=== PATIENT | male | born 1990 | race Caucasian/White ===

== ENCOUNTER 2017-11-21 11:21 | Emergency (ER) | payer OTHER ==
[2017-11-21] MEDS ORDERED: ALBUTEROL 3 ML DEYVIAL ONE (11:27)
[2017-11-21] MEDS ORDERED: ALBUTEROL 3 ML DEYVIAL IH ONE (11:28)
[2017-11-21] MEDS ORDERED: NS 1,000 ML IV ONE (11:28)
[2017-11-21] MEDS ORDERED: RANITIDINE 50 MG/2 ML VIAL IVP ONE (11:28)
[2017-11-21] MEDS ORDERED: methylPREDNISolone SOD SUCC 125 MG/2 ML VIAL IVP ONE (11:28)
--- NOTE | 2017-11-21 11:31 | EDPHY ---
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 Onset of facial swelling and shortness of breath 30 min ago. 5 min prior to arrival, he used an EpiPen. He now feels somewhat shaky after the EpiPen. He continues to be short of breath and have lip and facial swelling. Unknown allergen. h/o prior allergic rxns to MSG and almonds. REVIEW OF SYSTEMS: complete 10 point ROS negative except at noted in the HPI - Medical/Surgical History Hx Asthma: No Hx Chronic Respiratory Disease: No Hx Diabetes: No Hx Cardiac Disease: No Hx Renal Disease: No Hx Cirrhosis: No Hx Alcoholism: No Hx HIV/AIDS: No Hx Splenectomy or Spleen Trauma: No Other PMH: 5unremarkable. anaphy;asxis to ? - Social History Smoking Status: Never smoked - Physical Exam Exam: General Appearance: Alert, anxious Eyes: Pupils equal and round, periorbital swelling ENT, Mouth: Mucous membranes moist, moderate lip swelling, no tongue swelling Neck: Stridor present Respiratory: tachypneic, lungs are clear to auscultation, no wheezing Cardiovascular: Regular rate and rhythm Neurological: A&O, nonfocal, normal gait Skin: Normal inspection, no hives Extremities: No swelling Psychiatric: Mood and affect normal Constitutional: Initial Vital Signs Temperature (C) 37.0 C 11/21/17 11:24 Heart Rate 128 H 11/21/17 11:24 Respiratory Rate 22 H 11/21/17 11:24 Blood Pressure 95/62 L 11/21/17 11:24 O2 Sat (%) 89 L 11/21/17 11:24 O2 Delivery Mode Room Air Allergies/Adverse Reactions: msg Allergy (Uncoded 11/21/17 11:39) Home Medications: Medication Instructions Recorded EPINEPHrine [Epipen 0.3 MG] 0.3 mg IM ONCE #2 syr 11/21/17 Epinephrine 11/21/17 predniSONE 60 mg PO DAILY #9 tab 11/21/17 Medical Decision Making ED Course/Re-evaluation: This patient presents with anaphylaxis. Benadryl, ranitidine and Solu-Medrol IV given. An albuterol nebulized breathing treatment given. 11:45 a.m.-feels much better after medication. Stridor has resolved and lip swelling has lessened. Will observe. 1340: Continues to feel much better. On exam, he has slight lower lip swelling , no stridor and lungs are clear to auscultation. I feel that he is safe and stable for discharge home. f/u black topper. He will return for worsening symptoms or any concerns. Differential Diagnosis: Differential diagnosis includes though it is not limited to laryngeal edema, bronchospasm, hypotension, angioedema. - Data Points Medications Given: Discontinued Medications Albuterol (Proventil Neb) 3 ml IH EDNOW ONE Stop: 11/21/17 11:29 Last Admin: 11/21/17 11:31 Dose: 3 ml Diphenhydramine HCl (Benadryl Injection) 50 mg IVP EDNOW ONE Stop: 11/21/17 11:29 Last Admin: 11/21/17 11:30 Dose: 50 mg Sodium Chloride (Ns) 1,000 mls @ 0 mls/hr IV ONCE ONE; Wide Open PRN Reason: Protocol Stop: 11/21/17 11:29 Last Admin: 11/21/17 11:32 Dose: 1,000 mls Methylprednisolone Sodium Succinate (Solu-Medrol) 125 mg IVP EDNOW ONE Stop: 11/21/17 11:29 Last Admin: 11/21/17 11:32 Dose: 125 mg Ranitidine HCl (Zantac) 50 mg IVP EDNOW ONE Stop: 11/21/17 11:29 Last Admin: 11/21/17 11:31 Dose: 50 mg Departure - Departure Disposition: Home, Routine, Self-Care Clinical Impression: Anaphylaxis Qualifiers: Encounter type: initial encounter Qualified Code(s): T78.2XXA - Anaphylactic shock, unspecified, initial encounter Condition: Good Instructions: Anaphylaxis (ED) Additional Instructions: Take Claritin in the morning and Benadryl at night while the rash persists. Take prednisone as prescribed. Return for worsening symptoms or any concerns. Referrals: Shameka Rose MD [Medical Doctor] - Follow Up Only If Needed Prescriptions: EPINEPHrine [Epipen 0.3 MG] 0.3 mg IM ONCE #2 syr predniSONE 60 mg PO DAILY #9 tab
[2017-11-21 12:56] VITALS: BP 113/66
== END 2017-11-21 13:45 | disposition home or self-care (01) ==
DX: T78.2XXA Anaphylactic shock, unspecified, initial encounter (principal); E86.9 Volume depletion, unspecified
CPT/HCPCS: 96374; J2930; J7613

== ENCOUNTER 2017-12-12 20:50 | Observation (INO) | payer MEDICAID, OTHER ==
[2017-12-12] MEDS ORDERED: TDAP ADULT 0.5 ML INJ (BOOSTRIX) IM ONE (20:57)
[2017-12-12] MEDS ORDERED: ceFAZolin 2 GM/DEXTROSE 100 ML IV ONE (20:57)
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
[2017-12-12 21:04] LABS: PLATELET COUNT 296 10^3/uL (150-400)
[2017-12-12] MEDS ORDERED: CEFAZOLIN 1 GM/DEXTROSE/50 ML BAG IV ONE (21:05)
[2017-12-12 21:23] LABS: PROTIME(PATIENT) 13.4 SEC (12.0-15.0)
[2017-12-12] MEDS ORDERED: HYDROmorphONE/DILAUDID 2 MG/ML INJ IVP ONE (21:25)
[2017-12-12] MEDS ORDERED: HYDROmorphONE/DILAUDID 1 MG/ML INJ ONE (21:26)
[2017-12-12] MEDS ORDERED: HYDROmorphONE/DILAUDID 1 MG/ML INJ IVP ONE (22:00)
[2017-12-12] MEDS ORDERED: ACETAMINOPHEN 325 MG TAB PO ONE (22:17)
[2017-12-12] MEDS ORDERED: HYDROmorphONE/DILAUDID 1 MG/ML INJ IVP PRN (22:22)
[2017-12-12] MEDS ORDERED: D5W 1/2 NS 1,000 ML IV SCH (22:30)
[2017-12-12] MEDS ORDERED: ONDANSETRON 4 MG/2 ML VIAL ONE (22:38)
[2017-12-12] MEDS ORDERED: ONDANSETRON 4 MG/2 ML VIAL IVP ONE ×2 (22:40→23:00)
[2017-12-12] MEDS ORDERED: NON-FORMULARY NEW DRUG (Epinephrine [Epipen 0.3 Mg] 0.3 MG) IM PRN (22:45)
[2017-12-13] MEDS ORDERED: ONDANSETRON 4 MG/2 ML VIAL ONE ×2 (04:16→08:35)
[2017-12-13] MEDS ORDERED: ONDANSETRON 4 MG/2 ML VIAL IVP PRN ×2 (04:42→12:33)
[2017-12-13] MEDS ORDERED: ceFAZolin 2 GM/DEXTROSE 100 ML IV SCH (06:00)
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
[2017-12-13] MEDS ORDERED: SCOPOLAMINE HYDROBROMIDE 1 MG/3 DAYS PATCH TD ONE (08:17)
[2017-12-13] MEDS ORDERED: MIDAZOLAM 2 MG/2 ML VIAL IVP ONE (08:19)
[2017-12-13] MEDS ORDERED: BACITRACIN 50,000 UNITS/10 ML SYR IRR ONE ×2 (08:20→09:37)
[2017-12-13] MEDS ORDERED: BUPIVACAINE 0.25% 30 ML SDV ONE (08:20)
[2017-12-13] MEDS ORDERED: EPINEPHrine 1 MG/ML INJ ONE (08:20)
--- NOTE | 2017-12-13 08:22 | PDANEPAE ---
ANE History of Present Illness ORIF L forearm for open both bone mid-shaft fracture ANE Past Medical History - Pulmonary History Hx Oxygen in Use at Home: No Hx Sleep Apnea: No Sleep Apnea Screening Result - Last Documented: Negative - Endocrine History Hx Diabetes: No - Chronic Pain History Chronic Pain: No ANE Review of Systems Review of Systems: - Exercise capacity Exercise capacity: >=4 METS ANE Patient History - Allergies Allergies/Adverse Reactions: msg Allergy (Severe, Uncoded 12/12/17 22:36) Unknown - NPO status NPO Status: no food or drink >8 hours NPO Since - Liquids (Date): 12/13/17 (1999 last night) NPO Since - Liquids (Time): 00:01 NPO Since - Solids (Date): 12/13/17 NPO Since - Solids (Time): 00:01 - Anes Hx Anes Hx: no prior problems (no anesthetics ever. Has N/V with opiates so will place scopalamine patch) - Smoking Hx Smoking Status: Never smoked - Alcohol Use Alcohol Use: Occasionally - Family Anes Hx Family Anes Hx: none ANE Labs/Vital Signs - Labs Result Diagrams: 12/12/17 23:40 12/12/17 23:40 - Vital Signs Blood Pressure: 128/58 Heart Rate: 72 Respiratory Rate: 16 O2 Sat (%): 96 Height: 187.96 cm Weight: 88.451 kg ANE Physical Exam - Airway Neck exam: FROM Mallampati Score: Class 1 Mouth exam: normal dental/mouth exam - Pulmonary Pulmonary: no respiratory distress - Cardiovascular Cardiovascular: regular rate and rhythym - ASA Status ASA Status: I ANE Anesthesia Plan Anesthesia Plan: GA w LMA
[2017-12-13] MEDS ORDERED: SCOPOLAMINE HYDROBROMIDE 1 MG/3 DAYS PATCH TD SCH (08:30)
[2017-12-13] MEDS ORDERED: PROPOFOL/EMULSION 500 MG/50 ML BOTTLE IV ONE ×2 (08:34→10:03)
[2017-12-13] MEDS ORDERED: fentaNYL 100 MCG/2 ML INJ ONE ×3 (08:34→11:46)
[2017-12-13] MEDS ORDERED: LIDOCAINE 2% JELLY 5 ML TUBE ONE (08:35)
[2017-12-13] MEDS ORDERED: DEXAMETHASONE 4 MG/ML VIAL ONE ×2 (08:35)
[2017-12-13] MEDS ORDERED: LIDOCAINE 2% 100 MG/5 ML SYR ONE (08:35)
[2017-12-13] MEDS ORDERED: CEFAZOLIN 1 GM/DEXTROSE/50 ML BAG IV ONE (08:36)
[2017-12-13] MEDS ORDERED: MIDAZOLAM 2 MG/2 ML VIAL ONE (08:44)
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
[2017-12-13] MEDS ORDERED: PROPOFOL 200 MG/20 ML VIAL ONE (11:56)
[2017-12-13] MEDS ORDERED: PROMETHAZINE HCL 25 MG/ML INJ IVP PRN ×2 (12:33→13:41)
[2017-12-13] MEDS ORDERED: MEPERIDINE 25 MG/0.5 ML AMP IVP PRN (12:33)
[2017-12-13] MEDS ORDERED: LABETALOL HCL 5 MG/ML 20 ML MDV IVP PRN (12:33)
[2017-12-13] MEDS ORDERED: HYDROCODONE/APAP 5/325 TAB PO PRN (12:33)
[2017-12-13] MEDS ORDERED: DEXAMETHASONE 4 MG/ML VIAL IVP PRN (12:33)
[2017-12-13] MEDS ORDERED: NALOXONE HCL 0.4 MG/ML INJ IVP PRN (12:33)
[2017-12-13] MEDS ORDERED: ALBUTEROL 3 ML DEYVIAL IH PRN (12:33)
[2017-12-13] MEDS ORDERED: fentaNYL 100 MCG/2 ML INJ IVP PRN (12:33)
[2017-12-13] MEDS ORDERED: PHENYLEPHRINE HCL 100 MCG/ML SYR IVP PRN (12:33)
[2017-12-13] MEDS ORDERED: oxyCODONE IR 5 MG TAB PO PRN ×2 (12:33→13:41)
[2017-12-13] MEDS ORDERED: METOCLOPRAMIDE 10 MG/2 ML VIAL IVP PRN ×2 (12:33→13:41)
[2017-12-13] MEDS ORDERED: LR 500 ML IV PRN (12:33)
[2017-12-13] MEDS ORDERED: ACETAMINOPHEN 500 MG TAB PO PRN (12:33)
--- NOTE | 2017-12-13 13:08 | POSTOPPROG ---
Post Op Note Date of Operation: 12/13/17 Surgeon: Geo العراقي Classer: MACHO Brown Anesthesiologist: Anselmo Anesthesia: GET(General Endotracheal) Pre-op Diagnosis: L open BBFFx and L hand FB Post-op Diagnosis: same Indication: above Procedure: I&D/washout and ORIF L rad and ulna shaft fxs, FBR L hand Findings: Comminuted fractures, excellent bone quality, no gross contamination. Inf/Abcess present in the surg proc area at time of surgery?: No EBL: 30cc Complications: None Drains: Other (None)
[2017-12-13] MEDS ORDERED: diphenhydrAMINE 25 MG CAP PO PRN (13:41)
[2017-12-13] MEDS ORDERED: PROMETHAZINE HCL 25 MG SUPPR PR PRN (13:41)
[2017-12-13] MEDS ORDERED: ONDANSETRON DISINTEGRATING 4 MG TAB PO PRN (13:41)
[2017-12-13] MEDS ORDERED: TEMAZEPAM 15 MG CAP PO PRN (13:41)
[2017-12-13] MEDS ORDERED: DIPHENOXYLATE/ATROPINE LOMOTIL 1 TAB PO PRN (13:41)
[2017-12-13] MEDS ORDERED: CYCLOBENZAPRINE 10 MG TAB PO PRN (13:41)
[2017-12-13] MEDS ORDERED: LR 1,000 ML IV SCH (14:00)
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
[2017-12-13] MEDS: ACETAMINOPHEN 325 MG TAB PO SCH (16:52)
[2017-12-13] MEDS: OXYCODONE/APAP 5/325 TAB PO PRN ×2 (17:20→23:31)
[2017-12-13] MEDS: FAMOTIDINE 20 MG TAB PO SCH (20:09)
[2017-12-14] MEDS: ACETAMINOPHEN 325 MG TAB PO SCH ×3 (05:02→13:42)
[2017-12-14] MEDS: OXYCODONE/APAP 5/325 TAB PO PRN ×2 (05:41→09:57)
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
[2017-12-14 07:40] VITALS: BP 99/48
[2017-12-14] MEDS ORDERED: EPINEPHrine KIT (USE FOR EPIPEN) 1 MG/ML IM PRN (08:00)
[2017-12-14] MEDS: FAMOTIDINE 20 MG TAB PO SCH (08:36)
--- NOTE | 2017-12-14 08:49 | POSTANESTH ---
Post Anesthetic Evaluation Cardiovascular Status: Normal, Stable Respiratory Status: Normal, Stable Level of Consciousness/Mental Status: Can Participate in Eval Pain Control: Adequate, Prn Tx Ordered Nausea/Vomiting Control: Adequate, Prn Tx Ordered Complications Possibly Related to Anesthesia: None Noted (Lemus left in place due to possible urethral injury)
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
[2017-12-14] MEDS ORDERED: ASCORBIC ACID 500 MG TAB PO SCH (21:00)
== END 2017-12-14 14:31 | disposition home or self-care (01) ==
LOC: EDUNIT# → OBSVTOIN 22:17 → INTOOBSV 22:17 → F3N 22:45
PROVIDERS: ADMIT Orthopaedic Surgery; ATTEND Orthopaedic Surgery
DX: S52.352A Displaced comminuted fracture of shaft of radius, left arm, initial encounter for closed fracture (principal); S52.252A Displaced comminuted fracture of shaft of ulna, left arm, initial encounter for closed fracture; S60.552A Superficial foreign body of left hand, initial encounter; V11.2XXA Unspecified pedal cyclist injured in collision with other pedal cycle in nontraffic accident, initial encounter
CPT/HCPCS: 20103; 25575; 73090; 90471; 96365; 96375; 96376; 97116; 97161; 97165; 97535; 99285; C1769; G0378; A4565; C1713; J0171; J0690; J1100; J1170; J2001; J2250; J2270; J2405; J2550; J2704; J3010

== ENCOUNTER 2017-12-19 01:59 | Emergency (ER) | payer MEDICAID ==
--- NOTE | 2017-12-19 02:13 | EDPHY ---
H & P Stated Complaint: urinary difficulty Time Seen by Provider: 12/19/17 02:13 HPI/ROS: HPI CHIEF COMPLAINT: Trouble urinating. HISTORY OF PRESENT ILLNESS: Patient is a 27-year-old male, otherwise healthy without any significant medical history he recently had surgery of his left arm. This was performed on December 12 for an open fracture. He did well with this. He presents emergency room this evening around 215 in the morning with dysuria and significant pain when he urinates. Noticed blood. He is not eyes back pain or fever. Denies abdominal pain. He states he has been urinating since his surgery and voiding. He denies any abdominal distention or significant abdominal pain. He does admit to hematuria dysuria and as up tonight significant burning when he urinates. He reports to me that he was told in recovery that there may have been trouble with Lemus catheter during surgery and possibly deployment of the balloon too early. However reports that over the past few days he has been urinating fine no significant blood until today. He does report that his urine has been cloudy. Denies fever, denies abdominal pain, denies flank pain. Denies chest pain or shortness of breath. He states his arm pain is well tolerated. He has been taking very minimal [place]. Past Medical History: Denies significant medical history Past Surgical History: Denies significant surgical history except for recent left arm surgery 12/12. Social History: Denies drugs alcohol tobacco. Family History: Noncontributory ROS REVIEW OF SYSTEMS: A comprehensive 10 point review of systems is otherwise negative aside from elements mentioned in the history of present illness. Exam Constitutional appears well nontoxic no acute distress, triage nursing summary reviewed, vital signs reviewed, awake/alert. Eyes normal conjunctivae and sclera, EOMI, PERRLA. HENT normal inspection, atraumatic, moist mucus membranes, no epistaxis, neck supple/ no meningismus, no raccoon eyes. Respiratory clear to auscultation bilaterally, normal breath sounds, no respiratory distress, no wheezing. Cardiovascular rate normal, regular rhythm, no murmur, no edema, distal pulses normal. Gastrointestinal soft, non-tender, no rebound, no guarding, normal bowel sounds, no distension, no pulsatile mass. Genitourinary exam; Dave ABDI hybrid corn breeder at bedside. This is circumcised male. Normal testicular lie. There is dark clotted blood at the urethral meatus. No suprapubic tenderness no abnormality of the shaft or significant tenderness on exam. Musculoskeletal no midline vertebral tenderness, full range of motion, no calf swelling, no tenderness of extremities, no meningismus, good pulses, neurovascularly intact. Skin pink, warm, & dry, no rash, skin atraumatic. Neurologic awake, alert and oriented x 3, AAOx3, moves all 4 extremities equally, motor intact, sensory intact, CN II-XII intact, normal cerebellar, normal vision, normal speech. Psychiatric normal mood/affect. Heme/Lymph/Immune no lymphadenopathy. Differential Diagnosis: Includes but is not limited to in a particular order use UTI, urethral injury, prostatitis, cystitis. Medical Decision Making: Plan for this patient check urinalysis formal. Patient is able to urinate. Will obtain urine sample. I performed a bedside ultrasound of the bladder I did not see any significant debris in the bladder large amount of clots. However the bladder is rather large and has urine in it indicating a full bladder. Will obtain urinalysis to evaluate for infection. If patient is unable to urinate will need to place Lemus catheter. Will additionally do a postvoid residual. Re-evaluation: 0237: Patient was able to sit down and urinate without any difficulty. He denies any significant pain. Urinalysis will be sent. Postvoid residual will be performed. 0336: Patient was able to urinate without any difficulty here in the emergency room. Normal stream. Postvoid residual was 0. No retention of urine. He urinated without any difficulty. Urinalysis unremarkable. Unclear what gave him difficult pain earlier. It is possible he passed a kidney stone or blood clot. He did not have any flank pain or kidney pain. He feels fine now would like to go home. Discussed return precautions with him he understands return emergency room if develops abdominal pain, back pain, flank pain, hematuria trouble urinating questions or concerns. He does have a follow-up appoint with Orthopedics on Thursday courage him to keep this appointment however over the weekend if he has any trouble urinating or questions concerns to return to the ER. Source: Patient - Personal History Current Tetanus/Diphtheria Vaccine: Yes Current Tetanus Diphtheria and Acellular Pertussis (TDAP): Yes - Medical/Surgical History Hx Asthma: No Hx Chronic Respiratory Disease: No Hx Diabetes: No Hx Cardiac Disease: No Hx Renal Disease: No Hx Cirrhosis: No Hx Alcoholism: No Hx HIV/AIDS: No Hx Splenectomy or Spleen Trauma: No Other PMH: 5unremarkable. anaphy;asxis to ? - Social History Smoking Status: Never smoked Constitutional: Initial Vital Signs Temperature (C) 37 C 12/19/17 02:08 Heart Rate 97 12/19/17 02:08 Respiratory Rate 16 12/19/17 02:08 Blood Pressure 135/89 H 12/19/17 02:08 O2 Sat (%) 96 12/19/17 02:08 O2 Delivery Mode Room Air Allergies/Adverse Reactions: msg Allergy (Severe, Uncoded 12/12/17 22:36) Unknown Home Medications: Medication Instructions Recorded EPINEPHrine [Epipen 0.3 MG] 0.3 mg IM ONCE #2 syr 11/21/17 Ascorbic Acid [Vitamin C 500 mg 500 mg PO BID tab 12/14/17 (*)] Ondansetron Odt [Zofran Odt 4 mg 4 mg PO Q4HRS PRN #30 tab 12/14/17 (*)] oxyCODONE/APAP 5/325 [Percocet 1 - 2 tab PO Q4-6PRN PRN #30 tab 12/14/17 5/325 (*)] Medical Decision Making - Data Points Laboratory Results: 12/19/17 02:30 Urine Color ALMA Urine Appearance HAZY Urine pH 5.0 (5.0-7.5) Ur Specific [place] 1.027 (1.002-1.030) Urine Protein NEGATIVE (NEGATIVE) Urine Ketones NEGATIVE (NEGATIVE) Urine Blood NEGATIVE (NEGATIVE) Urine Nitrate NEGATIVE (NEGATIVE) Urine Bilirubin NEGATIVE (NEGATIVE) Urine Urobilinogen 2.0 EU H EU (0.2-1.0) Ur Leukocyte Esterase NEGATIVE (NEGATIVE) Urine Glucose NEGATIVE (NEGATIVE) Departure - Departure Disposition: Home, Routine, Self-Care Clinical Impression: Dysuria Hematuria Qualifiers: Hematuria type: gross Qualified Code(s): R31.0 - Gross hematuria Condition: Good Instructions: Dysuria (ED), Hematuria (ED) Additional Instructions: 1. Return emergency room if you have any worsening symptoms questions or concerns. 2. Follow up with her orthopedic surgeon on Thursday. Referrals: Ayo Stephen DO [Primary Care Provider] - As per Instructions Cornelio Padron MD [Medical Doctor] - As per Instructions
[2017-12-19 03:50] VITALS: BP 135/78
== END 2017-12-19 03:49 | disposition home or self-care (01) ==
DX: R30.0 Dysuria (principal); R31.0 Gross hematuria

== ENCOUNTER 2018-01-25 06:27 | Emergency (ER) | payer MEDICAID ==
[2018-01-25 06:33] VITALS: BP 131/94
--- NOTE | 2018-01-25 06:48 | EDPHY ---
H & P Stated Complaint: chills, L arm concern for infection Time Seen by Provider: 01/25/18 06:42 HPI/ROS: Chief Complaint: Possible left arm infection HPI: 27-year-old male who sustained a fracture to his left arm in middle last month. Patient developed infection on the surgical hardware. He had these removed and a drain placed a week ago. He is currently on IV antibiotics through a PICC line. He has seen Dr. العراقي from orthopedic surgery and Dr. Yanes from Infectious Disease. He woke this morning with chills. He he checked his temperature which was 96. He also noticed heart rate was about 90. He became concerned about the possibility of sepsis after looking on the Internet and came to the hospital for further evaluation. Denies any lightheaded or palpitations. No nausea or vomiting. No increasing pain in his arm. He has also noted a little bit of increased drainage from his surgical drain. He has an appointment with his orthopedic surgeon later today. ROS: 10 point Review of Systems is negative except as noted in the HPI. Social History: No smoking, no alcohol, no recreational drug use Family History: non-contributory Physical Exam: Vital signs: Heart rate of 87, blood pressure 131/94, respiratory rate is 18, oxygen saturation 97%, temperature is 36.6 Gen: Awake, Alert, No Distress HEENT: Nose: no rhinorrhea Eyes: PERRLA, EOMI Mouth: Moist mucosa Ext: Left forearm is in a splint with a drain in place. I have taken the splint down. The incision is intact. There is no erythema. Is not warm to touch. There is no significant swelling. Skin: no rash Neuro: CN II-XII intact, Sensation grossly intact, Strength 5/5 in bilateral upper and lower extremities - Personal History Current Tetanus/Diphtheria Vaccine: Yes - Medical/Surgical History Hx Asthma: No Hx Chronic Respiratory Disease: No Hx Diabetes: No Hx Cardiac Disease: No Hx Renal Disease: No Hx Cirrhosis: No Hx Alcoholism: No Hx HIV/AIDS: No Hx Splenectomy or Spleen Trauma: No Other PMH: L arm fracture, anxiety - Social History Smoking Status: Never smoked Constitutional: Initial Vital Signs Temperature (C) 36.6 C 01/25/18 06:29 Heart Rate 87 01/25/18 06:29 Respiratory Rate 18 01/25/18 06:29 Blood Pressure 131/94 H 01/25/18 06:29 O2 Sat (%) 97 01/25/18 06:29 O2 Delivery Mode Room Air Allergies/Adverse Reactions: msg Allergy (Severe, Uncoded 12/12/17 22:36) Unknown Home Medications: Medication Instructions Recorded EPINEPHrine [Epipen 0.3 MG] 0.3 mg IM ONCE #2 syr 11/21/17 Ascorbic Acid [Vitamin C 500 mg 500 mg PO BID tab 12/14/17 (*)] [id number] 01/25/18 Medical Decision Making ED Course/Re-evaluation: 27-year-old male with surgical site infection currently on IV antibiotics. He was presenting with concerns of possible sepsis. He is afebrile. He is not tachycardic. Blood pressure is appropriate. His surgical site shows no signs of erythema or infection. He has been reassured. He has no point with this orthopedic surgeon today. He has been resplinted. He will follow up with his doctor as scheduled. Departure - Departure Disposition: Home, Routine, Self-Care Clinical Impression: Visit for wound check Condition: Good Instructions: Surgical Site Infections (ED) Additional Instructions: Follow up with your orthopedist as scheduled today. Return to the emergency department for fever, increasing pain, redness, worsening discharge from the wound, or any other concerns. Referrals: Geo العراقي MD [Medical Doctor] - As per Instructions
== END 2018-01-25 07:00 | disposition home or self-care (01) ==
DX: Z51.89 Encounter for other specified aftercare (principal); R68.83 Chills (without fever)

== ENCOUNTER 2018-03-17 02:41 | Emergency (ER) | payer MEDICAID ==
--- NOTE | 2018-03-17 02:57 | EDPHY ---
H & P Stated Complaint: infuse meropenem Time Seen by Provider: 03/17/18 02:57 HPI/ROS: HPI CHIEF COMPLAINT: Concerned about arm. HISTORY OF PRESENT ILLNESS: 27-year-old male, very familiar to myself, presents to the emergency room with questions about his recent surgery of his left arm. Patient had a remote fractures left arm and subsequent hardware placed and then unfortunately subsequently got a hardware infection. He went down to [facility] and saw Dr. Pina. He had his hardware removed. This was done on March 05. He has been taking meropenem. His meropenem is every 8 hr. He self administers at home due his right arm PICC line. He is followed now at [facility]. He had his sutures removed today. He presents emergency room with concern about 2 focal areas of some very minimal redness where the sutures were removed. There is no signs of infection. No warmth, no drainage, no pus, no fever. No significant pain. He had questions and evaluation of this. I reassured him that it looks well. He understands keep watching it closely and keep it clean. Additionally we discussed about return precautions return emergency room if there is any worsening redness, swelling, pain. I do recommend he continues his meropenem. Follow up with [facility] as needed. He does understand if he has any worsening symptoms questions or concerns would welcome to be re-evaluated. At this time I do not see any evidence of infection. He was reassured by this. Past Medical History: Left arm fracture with subsequent hardware, and then subsequent hardware infection with revision., osteomyelitis of the left forearm Past Surgical History: Left arm hardware fracture revision. Social History: Denies drugs alcohol tobacco. Family History: Noncontributory. ROS REVIEW OF SYSTEMS: 10 Systems were reviewed and negative with the exception of the elements mentioned in the history of present illness. Exam Constitutional triage nursing summary reviewed, vital signs reviewed, awake/ alert. Eyes normal conjunctivae and sclera, EOMI, PERRLA. HENT normal inspection, atraumatic, moist mucus membranes, no epistaxis, neck supple/ no meningismus, no raccoon eyes. Respiratory clear to auscultation bilaterally, normal breath sounds, no respiratory distress, no wheezing. Cardiovascular rate normal, regular rhythm, no murmur, no edema, distal pulses normal. Gastrointestinal soft, non-tender, no rebound, no guarding, normal bowel sounds, no distension, no pulsatile mass. Genitourinary no CVA tenderness. Musculoskeletal Left arm: Lateral aspect over the ulnar region long incision clean, dry and intact. No evidence of warmth or redness, no signs of infection. Steri-Strips are in place. Sutures were removed today. At 2 focal areas suture there is very minimal redness. No pus. No evidence of infection on exam. Distally good radial pulse. no midline vertebral tenderness, full range of motion, no calf swelling, no tenderness of extremities, no meningismus, good pulses, neurovascularly intact. Skin pink, warm, & dry, no rash, skin atraumatic. Neurologic awake, alert and oriented x 3, AAOx3, moves all 4 extremities equally, motor intact, sensory intact, CN II-XII intact, normal cerebellar, normal vision, normal speech. Psychiatric normal mood/affect. Heme/Lymph/Immune no lymphadenopathy. Differential Diagnosis: Includes but is not limited to in a particular order reassurance about his current need for meropenem and postsurgical changes of his left forearm. Anxiety. Medical Decision Making: Plan for this patient we went over everything about how to keep his wound clean, additionally how to watch for infection, additionally that he should continue his mere pendulum as prescribed He understands return emergency room if develops worsening symptoms questions or concerns about his arm. Watch for redness, drainage, swelling, fever, pus. 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 - Social History Smoking Status: Never smoked Constitutional: Initial Vital Signs Temperature (C) 36.5 C 03/17/18 02:43 Heart Rate 83 03/17/18 02:43 Respiratory Rate 16 03/17/18 02:43 Blood Pressure 124/72 H 03/17/18 02:43 O2 Sat (%) 96 03/17/18 02:43 O2 Delivery Mode Room Air Allergies/Adverse Reactions: msg Allergy (Severe, Uncoded 09/19/18 02:46) Anaphylaxis Home Medications: Medication Instructions Recorded Meropenem 03/17/18 Departure - Departure Disposition: Home, Routine, Self-Care Clinical Impression: Visit for wound check Condition: Good Instructions: Surgical Site Infections (ED) Additional Instructions: 1. Watch for further signs of infection this includes redness, drainage, swelling, warmth. 2. Continue your antibiotics 3. Return to the ER for worsening symptoms. Referrals: Ayo Stephen DO [Primary Care Provider] - As per Instructions
[2018-03-17 03:27] VITALS: BP 110/66
== END 2018-03-17 03:29 | disposition home or self-care (01) ==
DX: Z48.89 Encounter for other specified surgical aftercare (principal)

== ENCOUNTER 2018-03-27 03:39 | Emergency (ER) | payer MEDICAID, OTHER ==
[2018-03-27] MEDS ORDERED: LORazepam 2 MG/ML INJ IVP ONE (03:43)
[2018-03-27] MEDS ORDERED: LORazepam 2 MG/ML INJ ONE (03:43)
[2018-03-27] MEDS ORDERED: NS 1,000 ML IV ONE (03:43)
--- NOTE | 2018-03-27 03:43 | EDPHY ---
H & P Time Seen by Provider: 03/27/18 03:43 HPI/ROS: HPI CHIEF COMPLAINT: Tachycardia, anxiety HISTORY OF PRESENT ILLNESS: 27-year-old male, who I am very familiar with, presents emergency room by ambulance for fast heart rate. Patient states he was sitting on his computer working all the sudden he got fast heart rate. He denies any chest pain or shortness of breath, denies pleuritic pain. Complains of fast heart rate. States this never happened before. Denies chest pain or shortness of breath or pleuritic pain. Patient became concerned as he has an active infection in his left arm for which she gets IV antibiotics to his right PICC line. Patient concerned that he may be developing sepsis or infection given his fast heart rate. He presents emergency room feeling very anxious. Of note upon arrival here heart rate is 122, however he is afebrile, normal blood pressure. Nontoxic appearing. The left arm where he has osteomyelitis and currently gets meropenem through an IV through PICC line looks well, no signs infection on exam. He does feel anxious. I do believe his tachycardia is from anxiety. Past Medical History: Osteomyelitis left arm. Hardware infection with hardware removal. Past Surgical History: Multiple left arm surgeries, PICC line right arm Social History: Denies drugs alcohol tobacco. Family History: Noncontributory ROS REVIEW OF SYSTEMS: 10 Systems were reviewed and negative with the exception of the elements mentioned in the history of present illness. Exam Constitutional nontoxic no acute distress triage nursing summary reviewed, vital signs reviewed, awake/alert. Eyes normal conjunctivae and sclera, EOMI, PERRLA. HENT normal inspection, atraumatic, moist mucus membranes, no epistaxis, neck supple/ no meningismus, no raccoon eyes. Respiratory clear to auscultation bilaterally, normal breath sounds, no respiratory distress, no wheezing. Cardiovascular rate normal, regular rhythm, no murmur, no edema, distal pulses normal. Gastrointestinal soft, non-tender, no rebound, no guarding, normal bowel sounds, no distension, no pulsatile mass. Genitourinary no CVA tenderness. Musculoskeletal left arm neurovascular intact, incision line looks clean, dry, intact no signs of infection, no midline vertebral tenderness, full range of motion, no calf swelling, no tenderness of extremities, no meningismus, good pulses, neurovascularly intact. Skin pink, warm, & dry, no rash, skin atraumatic. Neurologic anxious, awake, alert and oriented x 3, AAOx3, moves all 4 extremities equally, motor intact, sensory intact, CN II-XII intact, normal cerebellar, normal vision, normal speech. Psychiatric anxious, Heme/Lymph/Immune no lymphadenopathy. Differential Diagnosis: Includes but is not limited to in a particular order acute anxiety attack, panic attack, pulmonary embolism given indwelling line. Medical Decision Making: Plan for this patient IV establishment with fluid bolus, IV Ativan 0.5 mg for anxiety, basic blood work and D-dimer. Re-evaluate. Re-evaluation: EKG interpretation by me on record in [employer] system. Impression time of EKG 5:16 a.m., sinus rhythm rate of 89 without any signs of acute ischemia no signs of cardiac arrhythmia. No ST elevation no ST depression no T-wave abnormalities. No prolonged intervals unremarkable EKG. D-dimer negative. EKG is unremarkable no signs of acute ischemia or cardiac arrhythmia. 0644: Patient resting comfortably no acute distress. Feeling well. Much improved after IV Ativan. No acute distress. 0709: Patient resting comfortably no acute distress feels well. Denies any significant chest pain or shortness of breath. Heart rate 89. D-dimer noted to be negative. The patient's EKG was nonischemic no signs of cardiac arrhythmia. Patient is resting comfortably feels much better after Ativan. Patient requesting discharge home. Return precautions discussed with the patient understands return if he has worsening symptoms questions or concerns. 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 - Social History Smoking Status: Never smoked Constitutional: Initial Vital Signs Temperature (C) 37.0 C 03/27/18 03:41 Heart Rate 102 H 03/27/18 03:41 Respiratory Rate 18 03/27/18 03:41 Blood Pressure 149/93 H 03/27/18 03:41 O2 Sat (%) 98 03/27/18 03:41 O2 Delivery Mode Room Air Allergies/Adverse Reactions: msg Allergy (Severe, Uncoded 03/27/18 03:43) Anaphylaxis Home Medications: Medication Instructions Recorded Meropenem 03/17/18 LORazepam [Ativan (*)] 1 mg PO 03/27/18 Medical Decision Making - Data Points Laboratory Results: Laboratory Results 03/27/18 04:50 03/27/18 04:50 03/27/18 03/27/18 03/27/18 04:50 04:50 04:50 WBC 7.66 10^3/uL 10^3/uL (3.80-9.50) RBC 4.83 10^6/uL 10^6/uL (4.40-6.38) Hgb 14.8 g/dL g/dL (13.7-17.5) Hct 42.4 % % (40.0-51.0) MCV 87.8 fL fL (81.5-99.8) MCH 30.6 pg pg (27.9-34.1) MCHC 34.9 g/dL g/dL (32.4-36.7) RDW 13.3 % % (11.5-15.2) Plt Count 245 10^3/uL 10^3/uL (150-400) MPV 10.9 fL fL (8.7-11.7) Neut % (Auto) 68.0 % % (39.3-74.2) Lymph % (Auto) 18.5 % % (15.0-45.0) [place]andt % (Auto) 10.6 % % (4.5-13.0) Eos % (Auto) 2.2 % % (0.6-7.6) Baso % (Auto) 0.4 % % (0.3-1.7) Nucleat RBC Rel Count 0.0 % % (0.0-0.2) Absolute Neuts (auto) 5.21 10^3/uL 10^3/uL (1.70-6.50) Absolute Lymphs (auto) 1.42 10^3/uL 10^3/uL (1.00-3.00) Absolute Monos (auto) 0.81 10^3/uL H 10^3/uL (0.30-0.80) Absolute Eos (auto) 0.17 10^3/uL 10^3/uL (0.03-0.40) Absolute Basos (auto) 0.03 10^3/uL 10^3/uL (0.02-0.10) Absolute Nucleated RBC 0.00 10^3/uL 10^3/uL (0-0.01) Immature Gran % 0.3 % % (0.0-1.1) Immature Gran # 0.02 10^3/uL 10^3/uL (0.00-0.10) D-Dimer 0.40 ug/mLFEU ug/mLFEU (0.00-0.50) Sodium 138 mEq/L mEq/L (135-145) Potassium 4.0 mEq/L mEq/L (3.3-5.0) Chloride 101 mEq/L mEq/L (97-110) Carbon Dioxide 28 mEq/l mEq/l (22-31) Anion Gap 9 mEq/L mEq/L (8-16) BUN 19 mg/dL mg/dL (7-23) Creatinine 1.0 mg/dL mg/dL (0.7-1.3) Estimated GFR > 60 Glucose 107 mg/dL H mg/dL (70-100) Calcium 9.4 mg/dL mg/dL (8.5-10.4) Medications Given: Discontinued Medications Sodium Chloride (Ns) 1,000 mls @ 0 mls/hr IV ONCE ONE PRN Reason: Wide Open Stop: 03/27/18 03:44 Last Admin: 03/27/18 03:46 Dose: 1,000 mls Lorazepam (Ativan Injection) 0.5 mg IVP EDNOW ONE Stop: 03/27/18 03:44 Last Admin: 03/27/18 03:46 Dose: 0.5 mg Departure - Departure Disposition: Home, Routine, Self-Care Clinical Impression: Anxiety attack Condition: Good Instructions: Anxiety (ED) Additional Instructions: 1. Return emergency room if you have any worsening symptoms questions or concerns. Referrals: NONE *PRIMARY CARE P,. [Primary Care Provider] - As per Instructions
[2018-03-27 05:01] LABS: PLATELET COUNT 245 10^3/uL (150-400)
[2018-03-27 07:28] VITALS: BP 149/93
--- NOTE | 2018-03-29 15:21 | CPEKG ---
Test Reason : OPEN Blood Pressure : / mmHG Vent. Rate : 089 BPM Atrial Rate : 088 BPM P-R Int : 162 ms QRS Dur : 098 ms QT Int : 343 ms P-R-T Axes : 050 047 042 degrees QTc Int : 418 ms Sinus rhythm Confirmed by Dori Eugene ([id number]) on 03/29/2018 3:21:03 PM Referred By: Confirmed By:Dori Eugene
== END 2018-03-27 07:33 | disposition home or self-care (01) ==
LOC: EDUNIT#
DX: F41.9 Anxiety disorder, unspecified (principal)
CPT/HCPCS: 96374; J1642; J2060

== ENCOUNTER 2018-04-21 16:02 | Emergency (ER) | payer MEDICAID ==
--- NOTE | 2018-04-21 16:32 | EDPHY ---
H & P Stated Complaint: infected picc line Time Seen by Provider: 04/21/18 16:16 HPI/ROS: CHIEF COMPLAINT: Possibly displaced PICC line HISTORY OF PRESENT ILLNESS: 27-year-old male with medical history significant for open open left forearm fracture in November 2017 with subsequent infection around the wound site and development of osteomyelitis. He was admitted to [facility], ultimately he transferred his care to [facility], hardware was removed, and has been followed by Dr. 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 He states that his PICC line has been patent however he notes that for the past 4 weeks his PICC line has has been protruding significantly. He is concerned about this, contacted his infectious disease doctor recommend he go to the ER to go have a chest x-ray and replace PICC line if indicated. Patient denies: Fever, chills, flu-like symptoms, nausea, vomiting, malaise, abdominal pain, arm pain, discoloration. PRIMARY CARE PROVIDER: REVIEW OF SYSTEMS: 10 systems reviewed and negative with the exception of the elements mentioned in the history of present illness PAST MEDICAL & SURGICAL HISTORY: Left forearm open fracture with subsequent infection, currently being treated with IV ertapenem SOCIAL HISTORY:Nonsmoker PHYSICAL EXAM (Prior to examination, patient consented to physical exam, hands were washed and my usual and customary physical exam procedures followed) 1) GENERAL: Well-developed, well-nourished, alert and oriented. Appears anxious 2) HEAD: Normocephalic, atraumatic 3) HEENT: Pupils equal, round, reactive to light bilaterally. Sclera anicteric. 4) NECK: Full range of motion, no meningeal signs. 5) LUNGS: Clear auscultation bilaterally, no wheezes, no rhonchi, no retractions. 6) HEART: Regular rate and rhythm, no murmur, no heave, no gallop. 7) ABDOMEN: No guarding, no rebound, no focal tenderness, negative McBurney's, negative Francisco's, negative Rovsing's, negative peritoneal sign, 8) MUSCULOSKELETAL: Left upper extremity: The left forearm surgical site appears well with no dehiscence, normal coloration, no tenderness, no discharge , no lymphangitic streaking, no tenderness. Soft compartments. Right upper extremity: PICC line in place however it is protruding several cm. There is no erythema or drainage from the PICC line site. 9) BACK: No CVA tenderness, no midline vertebral tenderness, no fluctuance, no step-off, no obvious trauma, no visual or palpable abnormality. 10) SKIN: No rash, no petechiae. 11) Psychiatric: Patient is oriented X 3, there is no agitation. DIFFERENTIAL DIAGNOSIS: In no particular order including but not limited to displaced PICC line, wound infection, osteomyelitis - Personal History Current Tetanus Diphtheria and Acellular Pertussis (TDAP): Yes - Medical/Surgical History Hx Asthma: No Hx Chronic Respiratory Disease: No Hx Diabetes: No Hx Cardiac Disease: No Hx Renal Disease: No Hx Cirrhosis: No Hx Alcoholism: No Hx HIV/AIDS: No Hx Splenectomy or Spleen Trauma: No Other PMH: L arm fracture, anxiety, STAPH POST FX - Social History Smoking Status: Never smoked Constitutional: Initial Vital Signs Temperature (C) 36.8 C 04/21/18 16:13 Heart Rate 139 H 04/21/18 16:13 Respiratory Rate 20 04/21/18 16:13 Blood Pressure 153/93 H 04/21/18 16:13 O2 Sat (%) 97 04/21/18 16:13 O2 Delivery Mode Room Air Allergies/Adverse Reactions: msg Allergy (Severe, Uncoded 03/27/18 03:43) Anaphylaxis Home Medications: Medication Instructions Recorded Meropenem 03/17/18 LORazepam [Ativan (*)] 1 mg PO 03/27/18 Medical Decision Making - Diagnostics Imaging Results: Imaging Impressions Chest X-Ray 04/21/18 16:23 Impression: 1. Right arm PICC line in the axillary region. Recommend repositioning. 2. No acute pulmonary disease. Images reviewed myself ED Course/Re-evaluation: 4:32 p.m.: Medical records received from the office of Dr. Zachary Meneses which I reviewed including a prescription for chest x-ray and remove and replace PICC line if it is improperly positioned. Will obtain chest x-ray process placement of the PICC line. I saw this patient independently based on established practice protocols. Care of patient under supervision of secondary supervising physician Dr Vitaly Preciado with whom I discussed case. 4:46 p.m.: Patient's tip of PICC line in the axillary region. Will order a replacement of the PICC line. Consultation with interventional radiologist Dr. Grayson will perform procedure. 5:53 p.m.: Patient back from interventional radiology, PICC line replaced, patent. He will be discharged home, continue home IV medications as directed by his infectious disease physician at [facility]. Usual and customary wound precautions instructions provided. Departure - Departure Disposition: Home, Routine, Self-Care Clinical Impression: Status post PICC central line placement Condition: Good Instructions: How to Flush Your PICC or Midline Catheter (ED) Additional Instructions: Return to the ER if you develop fevers, redness or discharge from her PICC line site. Referrals: Follow-up, with your infectious disease doctor in 2-3 days [Other] - As per Instructions
[2018-04-21 18:00] VITALS: BP 118/78
== END 2018-04-21 17:59 | disposition home or self-care (01) ==
LOC: SUPCPDRO 16:02
PROC: 05H533Z Insertion of Infusion Device into Right Subclavian Vein, Percutaneous Approach (ICD-10-PCS; principal; 2018-04-21)
DX: Z45.2 Encounter for adjustment and management of vascular access device (principal); T84.7XXD Infection and inflammatory reaction due to other internal orthopedic prosthetic devices, implants and grafts, subsequent encounter; Z79.2 Long term (current) use of antibiotics; Z95.9 Presence of cardiac and vascular implant and graft, unspecified

== ENCOUNTER 2018-04-29 04:23 | Emergency (ER) | payer MEDICAID ==
[2018-04-29 04:29] VITALS: BP 155/88
--- NOTE | 2018-04-29 04:39 | EDPHY ---
H & P Stated Complaint: Low temp 94F-96F at home Time Seen by Provider: 04/29/18 04:43 HPI/ROS: HPI CHIEF COMPLAINT: Concerned about body temperature. 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 The patient presents emergency room as he was getting low temperatures at home with this thermometer of 96 degrees. Became concerned about this. Decided come the emergency room to be evaluated. Here in emergency room he has a normal blood pressure normal heart rate, normal temperature. Patient otherwise feels well. He denies fever, chills or rigors. No significant pain redness or drainage from his wound. His right arm PICC line is appropriate feels fine. No pain or swelling. Patient denies any chest pain or shortness of breath. 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 Past Surgical History: Left arm surgery and revision right arm PICC line. Social History: Denies drugs alcohol tobacco. Family History: Noncontributory ROS REVIEW OF SYSTEMS: 10 Systems were reviewed and negative with the exception of the elements mentioned in the history of present illness. Exam Constitutional nontoxic no acute distress, triage nursing summary reviewed, vital signs reviewed, awake/alert. Eyes normal conjunctivae and sclera, EOMI, PERRLA. HENT normal inspection, atraumatic, moist mucus membranes, no epistaxis, neck supple/ no meningismus, no raccoon eyes. Respiratory clear to auscultation bilaterally, normal breath sounds, no respiratory distress, no wheezing. Cardiovascular rate normal, regular rhythm, no murmur, no edema, distal pulses normal. Gastrointestinal soft, non-tender, no rebound, no guarding, normal bowel sounds, no distension, no pulsatile mass. Genitourinary no CVA tenderness. Musculoskeletal right arm PICC line in appropriate position, no signs of infection, left arm scars present. But no signs of infection swelling or redness or drainage. no midline vertebral tenderness, full range of motion, no calf swelling, no tenderness of extremities, no meningismus, good pulses, neurovascularly intact. Skin pink, warm, & dry, no rash, skin atraumatic. Neurologic awake, alert and oriented x 3, AAOx3, moves all 4 extremities equally, motor intact, sensory intact, CN II-XII intact, normal cerebellar, normal vision, normal speech. Psychiatric normal mood/affect. Heme/Lymph/Immune no lymphadenopathy. Differential Diagnosis: Includes but is not limited to in a particular order anxiety, panic disorder, hypervigilance, infection, sepsis, bacteremia Medical Decision Making: Here in emergency room the patient has normal vital signs. There is no signs of infection on exam. He has no chills, fever, rigors. He feels well. Plan for discharge home. Return precautions discussed with him. He is comfortable this plan. Source: Patient - Personal History Current Tetanus/Diphtheria Vaccine: Yes Current Tetanus Diphtheria and Acellular Pertussis (TDAP): Yes Tetanus Vaccine Date: 2017 - Medical/Surgical History Hx Asthma: No Hx Chronic Respiratory Disease: No Hx Diabetes: No Hx Cardiac Disease: No Hx Renal Disease: No Hx Cirrhosis: No Hx Alcoholism: No Hx HIV/AIDS: No Hx Splenectomy or Spleen Trauma: No Other PMH: L arm fracture, anxiety, STAPH POST FX - Social History Smoking Status: Never smoked Constitutional: Initial Vital Signs Temperature (C) 36.4 C 04/29/18 04:25 Heart Rate 78 04/29/18 04:25 Respiratory Rate 16 04/29/18 04:25 Blood Pressure 155/88 H 04/29/18 04:25 O2 Sat (%) 98 04/29/18 04:25 O2 Delivery Mode Room Air Allergies/Adverse Reactions: msg Allergy (Severe, Uncoded 04/29/18 04:28) Anaphylaxis Home Medications: Medication Instructions Recorded Meropenem 03/17/18 LORazepam [Ativan (*)] 1 mg PO 03/27/18 Departure - Departure Disposition: Home, Routine, Self-Care Clinical Impression: Arm wound Qualifiers: Encounter type: initial encounter Laterality: left Qualified Code(s): S41.102A - Unspecified open wound of left upper arm, initial encounter Condition: Good Instructions: Wound Infection (ED) Additional Instructions: 1. Continue to watch. Watch for fever, redness, swelling or pain. Referrals: NONE *PRIMARY CARE P,. [Primary Care Provider] - As per Instructions
== END 2018-04-29 04:45 | disposition home or self-care (01) ==
DX: Z03.89 Encounter for observation for other suspected diseases and conditions ruled out (principal); M86.9 Osteomyelitis, unspecified; T84.7XXD Infection and inflammatory reaction due to other internal orthopedic prosthetic devices, implants and grafts, subsequent encounter; Z79.2 Long term (current) use of antibiotics; Z95.9 Presence of cardiac and vascular implant and graft, unspecified

== ENCOUNTER 2018-05-03 19:43 | Emergency (ER) | payer MEDICAID ==
[2018-05-03 19:59] VITALS: BP 131/102
--- NOTE | 2018-05-03 20:18 | EDPHY ---
HPI/HX/ROS/PE/MDM Narrative: CHIEF COMPLAINT: Lesion on arm HPI: The patient is a 19-year-old male with a history of infected hardware of the forearm following fracture, currently on chronic meropenem therapy via PICC line. The patient complains of a small lesion that he saw on his left proximal forearm earlier today. He picked that it noticed there was a small amount of discharge. The patient is concerned that this represents a sinus tract from his previous infection. REVIEW OF SYSTEMS: Aside from elements discussed in the HPI, a comprehensive 10-point review of systems was reviewed and is negative. PMH: Includes infected hardware following fracture repair of left forearm. PHYSICAL EXAM: General:Patient is alert, in no acute distress. He is well-appearing. Skin: Normal color. No rash. Warm and dry. Extremities: Normal appearance. Full range of motion. A pinpoint skin lesion is noted on his posterior forearm, approximately 1-2 inches away from the well- healing surgical scar. There is no active discharge and no pus is expressible. There is no induration, nor fluctuance, tenderness, ecchymosis. Neuro: Oriented x3. Normal motor function. Normal sensory function. MDM: This patient presents with a punctate lesion on his left forearm which concerns him for possible sinus tract development. This point, this appears to be a very small break in the skin without evidence of fluctuance, erythema to suggest infectious disease are. The patient is already on chronic meropenem therapy so I do not think additional antibiotic therapy is indicated. There is certainly no sign of cellulitis or fluctuance that would be amenable to drainage. I reassured the patient and recommended he follow up with his orthopedist and/or infectious disease specialist. Of note, chart review indicates the patient was here just a few days ago with concern over low body temperature. He appears quite anxious. General Initial Vital Signs: Initial Vital Signs Temperature (C) 36.9 C 05/03/18 19:56 Heart Rate 106 H 05/03/18 19:56 Respiratory Rate 20 05/03/18 19:56 Blood Pressure 131/102 H 05/03/18 19:56 O2 Sat (%) 96 05/03/18 19:56 O2 Delivery Mode Room Air Allergies/Adverse Reactions: msg Allergy (Severe, Uncoded 04/29/18 04:28) Anaphylaxis Home Medications: Medication Instructions Recorded Meropenem 03/17/18 Departure - Departure Disposition: Home, Routine, Self-Care Clinical Impression: Skin lesion Condition: Good Instructions: Additional Information Additional Instructions: Keep wound clean. Follow-up with your orthopedist and/or Infectious Disease doctor within one week. Return to the ED for fever, worsening discharge from wound, swelling, pain or other concerns. Referrals: NONE *PRIMARY CARE P,. [Primary Care Provider] - As per Instructions
== END 2018-05-03 20:21 | disposition home or self-care (01) ==
DX: L98.9 Disorder of the skin and subcutaneous tissue, unspecified (principal); T84.7XXD Infection and inflammatory reaction due to other internal orthopedic prosthetic devices, implants and grafts, subsequent encounter; Z79.2 Long term (current) use of antibiotics

== ENCOUNTER 2018-05-04 19:46 | Emergency (ER) | payer MEDICAID ==
[2018-05-04 19:51] VITALS: BP 143/106
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
== END 2018-05-04 20:24 | disposition home or self-care (01) ==
DX: S41.102D Unspecified open wound of left upper arm, subsequent encounter (principal); T84.7XXD Infection and inflammatory reaction due to other internal orthopedic prosthetic devices, implants and grafts, subsequent encounter

== ENCOUNTER 2018-05-11 00:50 | Emergency (ER) | payer MEDICAID ==
[2018-05-11] MEDS ORDERED: NS 1,000 ML IV ONE (01:21)
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
[2018-05-11 01:55] LABS: PLATELET COUNT 299 10^3/uL (150-400)
[2018-05-11] MEDS ORDERED: fentaNYL 100 MCG/2 ML INJ ONE (02:13)
[2018-05-11] MEDS ORDERED: ONDANSETRON DISINTEGRATING 4 MG TAB ONE (02:22)
[2018-05-11 02:55] VITALS: BP 144/91
== END 2018-05-11 03:49 | disposition home or self-care (01) ==
DX: L76.82 Other postprocedural complications of skin and subcutaneous tissue (principal); E86.9 Volume depletion, unspecified
CPT/HCPCS: J3010

== ENCOUNTER 2018-07-20 15:55 | Emergency (ER) | payer MEDICAID ==
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
[2018-07-20 16:27] LABS: PLATELET COUNT 259 10^3/uL (150-400)
[2018-07-20 17:16] VITALS: BP 121/67
== END 2018-07-20 17:17 | disposition home or self-care (01) ==
DX: R19.5 Other fecal abnormalities (principal)

== ENCOUNTER 2018-10-04 19:20 | Emergency (ER) | payer MEDICAID ==
[2018-10-04] MEDS ORDERED: NS 1,000 ML IV ONE (19:33)
[2018-10-04] MEDS ORDERED: RANITIDINE 50 MG/2 ML VIAL IVP ONE (19:33)
[2018-10-04] MEDS ORDERED: methylPREDNISolone SOD SUCC 125 MG/2 ML VIAL IVP ONE (19:33)
[2018-10-04] MEDS ORDERED: methylPREDNISolone SOD SUCC 125 MG/2 ML VIAL ONE (20:25)
[2018-10-04] MEDS ORDERED: RANITIDINE 50 MG/2 ML VIAL ONE (20:25)
--- NOTE | 2018-10-04 20:46 | EDPHY ---
H & P Time Seen by Provider: 10/04/18 19:33 HPI/ROS: HPI Allergic reaction. 28-year-old male by private vehicle. This patient has a history of food allergies. Most severely to sesame seed oil, msg and almonds. He reports that approximately 3-4 hours prior to arrival he ate lunch. He thinks that the food he ate contain 1 of these ingredients. He felt a little congested afterwards. He then tried to go for a run and noticed that his face was swelling and his eyelids were swelling. He had a sensation of fullness in his throat as well. He stopped his run and drove himself to the emergency department. He states that he usually carries an EpiPen but he did not have this medication on him. ROS: Constitutional: No fever, no chills. As above. Eyes: No discharge. No changes in vision. ENT: No sore throat. As above. Respiratory: No cough. No shortness of breath. Cardiac: No chest pain, no palpitations. Gastrointestinal: No abdominal pain, no vomiting, no diarrhea. Genitourinary: No hematuria. No dysuria or increased frequency with urination. Musculoskeletal: No back pain. No neck pain. No myalgias or arthralgias. Skin: No rashes. As above. Neurological: No headache. No focal weakness or altered sensation. Past medical history: Allergies as noted above, anxiety, left arm fracture, staph infection. Social history: Nonsmoker. Physically active. Here by himself. No alcohol. Physical Exam: General Appearance: Alert, no distress. This patient is responding to questions appropriately and in full sentences. This patient appears well- hydrated and well-nourished. Eyes: Pupils equal and round no pallor or injection. No erythema or injection. He has some mild edema around his eyelids both eyes, a little bit worse on the left side. He also has some mild swelling and edema involving his forehead tissues and brow ridge. ENT, Mouth: Mucous membranes are moist. The pharyngeal tissues are unremarkable. He has a small amount of uvular edema. No asymmetry suggestive of abscess. No erythema or exudates. No stridor on auscultation of his neck. No voice changes. Respiratory: There are no retractions, lungs are clear to auscultation with good air movement bilaterally. Cardiovascular: Regular rate and rhythm. Borderline tachycardia. No murmur. Neurological: Motor sensory function is grossly intact. Cranial nerves are normal. Gait is normal. Skin: Warm and dry, no rashes. Musculoskeletal: Neck is supple and nontender. Extremities are symmetrical. All joints range without pain or impingement. Psychiatric: No agitation. No depression. Database: EKG: Imaging: Procedures: Emergency department course: Triage vital signs reviewed. IV was placed. He was initially given 125 mg of IV Solu-Medrol, 50 mg g of IV ranitidine and 50 mg of IV Benadryl. He was placed on a bottom painter. 8:45 p.m., the patient was re-evaluated, he is resting comfortably at this time. Heart rate is currently 58. Blood pressure 132/72. Pulse oximetry 98% on room air. He is feeling much better at this time. His facial edema has mostly resolved. Repeat pharyngeal exam no significant edema or asymmetry. No voice changes. His upper airway sounds are clear on auscultation. His lungs are clear on auscultation. He feels comfortable going home. He is asking me for a EpiPen prescription. This will be provided to him. I will also prescribe him a short course of prednisone and I discussed continued antihistamine dosing for the next 2 days. He is in agreement with this plan. Follow-up and return to emergency department precautions have been reviewed with him. All of his questions were answered. The patient was discharged home in good condition. Differential Diagnosis: The differential diagnosis on this patient includes but is not limited to allergic reaction. Anaphylactic shock, anaphylactoid reaction unlikely. This represents a partial list of diagnoses considered. These considerations are based on history, physical exam, past history, reassessment and diagnostic testing. Smoking Status: Never smoked Constitutional: Initial Vital Signs Heart Rate 103 H 10/04/18 19:23 Respiratory Rate 16 10/04/18 19:23 Blood Pressure 130/68 H 10/04/18 19:23 O2 Sat (%) 91 L 10/04/18 19:23 O2 Delivery Mode Room Air Allergies/Adverse Reactions: almond oil Allergy (Verified 10/04/18 19:23) msg Allergy (Severe, Uncoded 07/20/18 16:01) Anaphylaxis Home Medications: Medication Instructions Recorded EPINEPHrine [Epipen 0.3 MG] 0.3 mg IM ONCE #5 syr 10/04/18 predniSONE [prednisone 20mg (RX)] 60 mg PO DAILY #9 tab 10/04/18 Medical Decision Making - Data Points Medications Given: Discontinued Medications Diphenhydramine HCl (Benadryl Injection) 50 mg IVP EDNOW ONE Stop: 10/04/18 19:34 Last Admin: 10/04/18 19:35 Dose: 50 mg Sodium Chloride (Ns) 1,000 mls @ 0 mls/hr IV ONCE ONE; Wide Open PRN Reason: Protocol Stop: 10/04/18 19:34 Last Admin: 10/04/18 19:35 Dose: 1,000 mls Methylprednisolone Sodium Succinate (Solu-Medrol) 125 mg IVP EDNOW ONE Stop: 10/04/18 19:34 Last Admin: 10/04/18 19:35 Dose: 125 mg Ranitidine HCl (Zantac) 50 mg IVP EDNOW ONE Stop: 10/04/18 19:34 Last Admin: 10/04/18 19:35 Dose: 50 mg Departure - Departure Disposition: Home, Routine, Self-Care Clinical Impression: Allergic reaction Condition: Good Instructions: General Allergic Reaction (ED) Additional Instructions: Read and follow provided instructions. Follow-up with your primary care physician in 1-2 days for re-evaluation. You can take Benadryl 50 mg every 8 hr for the next 2 days as needed for allergy symptoms. You can also take Pepcid, 20 mg twice daily for the next 2 days as needed. I provided you with a short course of prednisone as well. If your feeling at all symptomatic in the morning fill this prescription. Remember to use your EpiPen 1st for any acute allergic reaction symptoms. Return to the emergency department for worsening symptoms, any sensation of swelling in your throat, difficulty breathing, difficulty swallowing, facial swelling or other serious concerns. Referrals: NONE *PRIMARY CARE P,. [Primary Care Provider] - As per Instructions Prescriptions: EPINEPHrine [Epipen 0.3 MG] 0.3 mg IM ONCE #5 syr predniSONE [prednisone 20mg (RX)] 60 mg PO DAILY #9 tab
[2018-10-04 21:04] VITALS: BP 134/63
== END 2018-10-04 21:02 | disposition home or self-care (01) ==
DX: T78.40XA Allergy, unspecified, initial encounter (principal); E86.9 Volume depletion, unspecified
CPT/HCPCS: 96374; J1200; J2780; J2930

== ENCOUNTER 2018-11-04 03:11 | Emergency (ER) | payer MEDICAID ==
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
[2018-11-04 04:58] VITALS: BP 115/75
== END 2018-11-04 04:57 | disposition home or self-care (01) ==
DX: J02.9 Acute pharyngitis, unspecified (principal); L08.9 Local infection of the skin and subcutaneous tissue, unspecified; Z86.14 Personal history of Methicillin resistant Staphylococcus aureus infection